=== PATIENT | male | born 1990 | race Caucasian/White ===

== ENCOUNTER → 2021-05-26 | Outpatient (CLI) | payer BC ==
[2015-05-03 04:30] VITALS: BP 135/75
--- NOTE | 2021-05-26 14:59 | RAD ---
EXAM: Chest, 2 views. HISTORY: Covid 19. COMPARISON: None. FINDINGS: 2 views of the chest are obtained. There is no infiltrate, pleural effusion or pneumothorax . The heart is normal in size. IMPRESSION: No acute pulmonary finding. Electronically signed by: Blanquita Wyatt MD (05/26/2021 2:56 PM) [id number]
== END ==
LOC: RAD 14:00
PROVIDERS: ATTEND Physician Assistant
DX: U07.1 COVID-19 (principal)
CPT/HCPCS: 71046